=== PATIENT | male | born 1945 | race Caucasian/White ===

== ENCOUNTER 2021-06-14 05:29 | Day surgery (SDC) | payer OTHER ==
[2021-05-24 11:26] LABS: CLARITY,URINE CLEAR (Clear); COLOR,URINE YELLOW (Yellow); GLUCOSE, URINE 100 mg/dl (Neg); KETONES,URINE NEGATIVE (Neg); LEUKOCYTE ESTERASE ,URINE NEGATIVE (Neg); NITRITES, URINE NEGATIVE (Neg); OCCULT BLOOD,URINE SMALL (Neg); PH,URINE 5.5 (4.8-8.0); PROTEIN,URINE 100 mg/dl (Neg); UROBILINOGEN,URINE 0.2 E.U/dL (0.2-1.0)
[2021-05-24 11:27] LABS: UA COLLECTION TYPE NON-SPECIFIED
[2021-05-24 11:29] LABS: BASOPHILS % (AUTO) 0.4 % (0-1); EOSINOPHILS # (AUTO) 0.2 X10'3 (0-0.9); EOSINOPHILS % (AUTO) 2.8 % (0-6); LYMPHOCYTES # (AUTO) 0.8 X10'3 (1.1-4.8); LYMPHOCYTES % (AUTO) 8.6 % (21-51); MEAN CORPUSCULAR HEMOGLOBIN 31.2 PG (27.0-31.0); MEAN CORPUSCULAR HGB CONC 33.7 g/dL (33.0-36.5); MEAN CORPUSCULAR VOLUME 92.6 FL (78-98); MEAN PLATELET VOLUME 7.3 FL (7.4-10.4); MONOCYTES % (AUTO) 11.1 % (2-12); NEUTROPHILS # (AUTO) 6.8 X10'3 (1.8-7.7); NEUTROPHILS % (AUTO) 77.1 % (42-75); PRE OP HEMATOCRIT 30.7 % (42.0-52.0); PRE OP PLATELET COUNT 184 X10'3 (140-440); RED BLOOD COUNT 3.31 X10'6 (4.70-6.10); RED CELL DISTRIBUTION WIDTH 15.9 % (11.5-14.5)
[2021-05-24 11:32] LABS: BACTERIA,URINE NONE SEEN /HPF (Neg); RBC,URINE 0-2 /HPF (0-2); WBC,URINE 0-4 /HPF (0-4)
[2021-05-24 11:33] LABS: SQUAMOUS EPITHELIAL CELL,UR FEW /LPF (FEW); WBC CLUMPS,URINE FEW /HPF (NEGATIVE)
[2021-05-24 11:34] LABS: PRE OP HEMOGLOBIN 10.3 g/dL (14.0-17.9)
[2021-05-24 11:38] LABS: ALBUMIN 3.4 G/DL (3.4-5.0); ALBUMIN/GLOBULIN RATIO 0.8 (1.1-1.5); ALKALINE PHOSPHATASE 96 IU/L (46-116); BLOOD UREA NITROGEN 83 MG/DL (7-18); BUN/CREATININE RATIO 16.7 (5.4-32.0); CALCIUM 8.4 MG/DL (8.5-10.1); CHLORIDE 108 MMOL/L (99-107); CREATININE 4.96 MG/DL (0.60-1.10); PRE OP ALT 30 U/L (30-65); PRE OP ANION GAP 15 (8-16); PRE OP AST 16 U/L (10-37); PRE OP BILIRUB, TOTAL 1.1 MG/DL (0.0-1.0); PRE OP GLUCOSE 96 MG/DL (70-104); PRE OP POTASSIUM 4.8 MMOL/L (3.4-5.1); PRE OP SODIUM 140 MMOL/L (135-145); TOTAL CARBON DIOXIDE 17.1 MMOL/L (24-32); TOTAL PROTEIN 7.5 G/DL (6.4-8.2); eGFR 11 ML/MIN
[2021-06-14] VITALS (16 sets, daily range): BP systolic 138–169; BP diastolic 68–84
[~2021-06-14] VITALS: Ht 182.9 cm; Wt 100.0 kg
[~2021-06-14 05:29] MED LIST: ATOR-2 PO; FERR240T5 PO; FURO-150 PO; GLIP5TAB13 PO; LISI20TA28 PO; TERA1CAP4 PO
[2021-06-14] MEDS ORDERED: cefazolin/dext.iso 2gm/50ml IV ONE (05:30)
[2021-06-14] MEDS ORDERED: famotidine 20mg tablet PO ONE (05:30)
[2021-06-14] MEDS ORDERED: normal saline 1000ml 1,000 ML IV SCH (05:30)
[2021-06-14] MEDS ORDERED: LIDOcaine 1% (10mg/ml) 2ml vial ONE (06:16)
[2021-06-14] MEDS ORDERED: CALC0.2511 PO (06:36)
[2021-06-14 06:44] LABS: BASOPHILS % (AUTO) 0.7 % (0-1); EOSINOPHILS # (AUTO) 0.3 X10'3 (0-0.9); EOSINOPHILS % (AUTO) 5.2 % (0-6); LYMPHOCYTES # (AUTO) 0.5 X10'3 (1.1-4.8); LYMPHOCYTES % (AUTO) 10.8 % (21-51); MEAN CORPUSCULAR HEMOGLOBIN 30.9 PG (27.0-31.0); MEAN CORPUSCULAR VOLUME 93.7 FL (78-98); MEAN PLATELET VOLUME 6.9 FL (7.4-10.4); MONOCYTES # (AUTO) 0.7 X10'3 (0-0.9); MONOCYTES % (AUTO) 13.5 % (2-12); NEUTROPHILS # (AUTO) 3.5 X10'3 (1.8-7.7); NEUTROPHILS % (AUTO) 69.8 % (42-75); PRE OP HEMATOCRIT 27.3 % (42.0-52.0); PRE OP PLATELET COUNT 171 X10'3 (140-440); RED BLOOD COUNT 2.91 X10'6 (4.70-6.10)
[2021-06-14] MEDS ORDERED: LIDOCAINE 1%/EPI 1:100,000 inj. 10 ML multi-dose vial ONE (06:58)
[2021-06-14] MEDS ORDERED: heparin 10,000 units/1 ML INJ ONE (06:58)
[2021-06-14] MEDS ORDERED: BUPIVAcaine/PF 2.5mg/ml (0.25%) 10ml vial ONE (06:58)
[2021-06-14 07:15] LABS: ALBUMIN 3.3 G/DL (3.4-5.0); ALBUMIN/GLOBULIN RATIO 0.9 (1.1-1.5); ALKALINE PHOSPHATASE 87 IU/L (46-116); BLOOD UREA NITROGEN 95 MG/DL (7-18); BUN/CREATININE RATIO 18.6 (5.4-32.0); CALCIUM 8.3 MG/DL (8.5-10.1); CHLORIDE 108 MMOL/L (99-107); CREATININE 5.11 MG/DL (0.60-1.10); PRE OP ALT 24 U/L (30-65); PRE OP ANION GAP 18 (8-16); PRE OP AST 19 U/L (10-37); PRE OP BILIRUB, TOTAL 1.1 MG/DL (0.0-1.0); PRE OP GLUCOSE 89 MG/DL (70-104); PRE OP POTASSIUM 4.5 MMOL/L (3.4-5.1); PRE OP SODIUM 142 MMOL/L (135-145); TOTAL CARBON DIOXIDE 15.6 MMOL/L (24-32); eGFR 11 ML/MIN
[2021-06-14] MEDS ORDERED: fentaNYL/PF 50MCG/1 ML 2ML syringe ONE (08:04)
[2021-06-14] MEDS ORDERED: ringers solution, lacted 1,000 ML IV SCH (08:15)
[2021-06-14] MEDS ORDERED: HYDROmorphone/PF 0.2 MG/ML SYRINGE IV PRN (08:15)
[2021-06-14] MEDS ORDERED: morphine 2 MG/ML inj. syringe IV PRN (08:15)
[2021-06-14] MEDS ORDERED: ondansetron/PF 4mg/2ml inj IV PRN (08:15)
[2021-06-14] MEDS ORDERED: BUPIVAcaine 0.5% inj/PF 30 ML ONE (08:56)
[2021-06-14] MEDS ORDERED: midazolam 1 mg/ML 2ml injection ONE (09:01)
[2021-06-14] MEDS ORDERED: ketamine 50mg/5ml syringe ONE (09:15)
[2021-06-14] MEDS ORDERED: LIDOcaine 2% (20mg/ml) 5ml vial ONE ×3 (09:51)
[2021-06-14] MEDS ORDERED: hydrALAZINE 20mg/ml inj. IV ONE (09:51)
[2021-06-14] MEDS ORDERED: propofol inj 20 ML IV ONE (09:51)
[2021-06-14] MEDS ORDERED: flumazenil 0.1 mg/ml inj. IV ONE (09:57)
--- NOTE | 2021-06-14 10:00 | NUR ---
Received from OR via [facility], accompanied by Anesthesiologist DR. SCALES and report given by Anesthesiolgist AND OR NURSE. PT ARRIVED AWAKE BUT DROWSY ON ROOM AIR. NAUSEA UPON ARRIVAL, NO EMESIS. ZOFRAN GIVEN. PT NAUSEA SUBSIDED SHORTLY AFTER MEDICATION GIVEN. DENIES PAIN. VSS. 20 G IV TO LEFT AC. PT HAS ISLAND DRESSING TO RIGHT WRIST THAT IS DRY AND INTACT WITH SCANT DRAINAGE. PT ARRIVED WITH RIGHT FOOT DRESSING THAT WAS PRESENT BEFORE ADMISSION. ACCU CHECK WAS 117 AT [address] SCALES. WILL CONTINUE TO MONITOR. Addendum: 06/14/21 at 1029 by Rossy Hanley RN Amended: Links added. Addendum: 06/14/21 at 1032 by Rossy Hanley RN PT HAS 3+ PITTING EDEMA TO BILATERAL EXTREMITIES.
[2021-06-14] MEDS ORDERED: proCHLORperazine 10 MG/2 ml inj IV PRN (11:35)
--- NOTE | 2021-06-14 12:20 | NUR ---
PATIENT A&OX4, DENIES PAIN, NAUSEA IMPROVED, V/S WNL, SCD OFF, 20G TO LAC D/C, RIGHT WRIST DRESSING DRY AND INTACT WITH NO CHANGES FROM PREVIOUS ASSESSMENT. RIGHT ARM STILL NUMB FROM BLOCK BUT PT ABLE TO MOVE IT. I HAVE REVIEWED D/C INSTRUCTIONS WITH PATIENT AND AND INSTRUCTED THEM ON EDUCATION REGARDING LIMITING RIGHT ARM USE. They have verbalized understanding patient d/c home with all belongings and gave transport home. Addendum: 06/14/21 at 1239 by Rossy Hanley RN Amended: Links added.
== END 2021-06-14 12:20 | disposition home or self-care (01) ==
LOC: PAS 05:29
PROVIDERS: ATTEND Surgery
DX: E11.22 Type 2 diabetes mellitus with diabetic chronic kidney disease (principal); I13.2 Hypertensive heart and chronic kidney disease with heart failure and with stage 5 chronic kidney disease, or end stage renal disease; N18.6 End stage renal disease; I50.9 Heart failure, unspecified; F43.10 Post-traumatic stress disorder, unspecified; E78.5 Hyperlipidemia, unspecified; E11.319 Type 2 diabetes mellitus with unspecified diabetic retinopathy without macular edema; G89.18 Other acute postprocedural pain; Z20.822 Contact with and (suspected) exposure to COVID-19; Z98.890 Other specified postprocedural states; Z85.51 Personal history of malignant neoplasm of bladder; Z79.899 Other long term (current) drug therapy; Z79.84 Long term (current) use of oral hypoglycemic drugs
CPT/HCPCS: 36415; 36821; 64417; 76942; 80053; 81001; 82948; 85025; 93005; J0360; J0690; J0780; J1644; J2250; J2405; J2704; J3010; J3490; J7030; J7040; J7120; S0020; U0003; U0005; Z7506; Z7508; Z7512; A4215; A4618; A6446; A7000